=== PATIENT | female | born 1940 | race Caucasian/White ===

== ENCOUNTER → 2017-08-26 | Outpatient (CLI) | payer MEDICARE, OTHER | END | disposition home or self-care (01) | LOC: CFH 13:33 | PROVIDERS: ATTEND Internal Medicine | DX: M81.0 Age-related osteoporosis without current pathological fracture (principal); N95.1 Menopausal and female climacteric states; M89.9 Disorder of bone, unspecified | CPT/HCPCS: 77080 ==

== ENCOUNTER 2019-02-02 08:23 | Outpatient (CLI) | payer MEDICARE, OTHER | END 2019-02-02 23:59 | disposition home or self-care (01) | LOC: CARD 08:23 | PROVIDERS: ATTEND Psychiatry & Neurology Neurology | DX: R56.9 Unspecified convulsions (principal) | CPT/HCPCS: 95819 ==